=== PATIENT | male | born 1995 | race Hispanic/Latino ===

== ENCOUNTER 2018-07-15 10:17 | Emergency (ER) | payer BC ==
[2018-07-15 11:25] LABS: Absolute Monocytes 1.1 K/uL (0.1-1.3); Absolute Neutrophil 7.2 K/uL (1.8-8.0); Basophils % 1.7 % (0-1.3); Eosinophils % 4.5 % (0-4.4); Hematocrit 50.5 % (39.6-49.0); Lymphocytes % 24.7 % (15.3-44.8); MPV 7.8 fL (7.6-11.3); Monocytes % 9.4 % (3.3-12.3)
[2018-07-15] MEDS ORDERED: NA CHLORIDE 0.9% 1,000 ML ONE (11:29)
[2018-07-15 11:50] LABS: Albumin 4.5 g/dL (3.4-5.0); Bilirubin Direct 0.1 mg/dL (0-0.2); Bilirubin Total 0.6 mg/dL (0.2-1.0); Potassium 4.3 mmol/L (3.5-5.1); Protein, Total 9.5 g/dL (6.4-8.2)
--- NOTE | 2018-07-15 12:34 | EDPHYS ---
Physician Documentation [facility] Name: Rl Olmedo Age: 22 yrs Sex: Male : 1995 Arrival Date: 07/15/2018 Time: 10:21 Bed 13 Private MD: None, None ED Physician Anselmo Duke Historical: - Allergies: 07/15 10:29 No Known Allergies; hj - Home Meds: 10:29 None [Active]; hj - PMHx: 10:29 None; hj - PSHx: 10:29 None; hj - Immunization history:: Adult Immunizations up to date. - Social history:: Smoking status: Patient/guardian denies using tobacco, Patient uses alcohol. - Ebola Screening: : Patient negative for fever greater than or equal to 101.5 degrees Fahrenheit, and additional compatible Ebola Virus Disease symptoms Patient denies exposure to infectious person Patient denies travel to an Ebola-affected area in the 21 days before illness onset. Vital Signs: 10:30 BP 142 / 66; Pulse 66; Resp 18; Temp 98.1(O); Pulse Ox 99% on R/A; Weight 112.49 kg; hj Height 5 ft. 10 in. (177.80 cm); Pain 2/10; 12:50 BP 135 / 74; Pulse 67; Resp 16; Pulse Ox 98% ; la1 10:30 Body Mass Index 35.58 (112.49 kg, 177.80 cm) hj MDM: 12:34 Patient medically screened. [facility] 07/15 11:03 Order name: Basic Metabolic Panel; Complete Time: 11:54 [facility] 07/15 11:03 Order name: CBC with Diff; Complete Time: 11:54 [facility] 07/15 11:03 Order name: Creatinine for Radiology; Complete Time: 11:54 [facility] 07/15 11:03 Order name: Hepatic Function; Complete Time: 11:54 [facility] 07/15 11:03 Order name: Lipase; Complete Time: 11:54 [facility] 07/15 11:03 Order name: IV Saline Lock; Complete Time: 11:23 [facility] 07/15 11:03 Order name: Labs collected and sent; Complete Time: 11:23 kdr Administered Medications: 11:23 Drug: NS 0.9% 1000 ml Route: IV; Rate: 1 bolus; Site: right antecubital; la1 12:50 Follow up: IV Status: Completed infusion la1 Disposition: 07/15/18 12:34 Discharged to Home. Impression: Diarrhea, unspecified. - Condition is Stable. - Discharge Instructions: Abdominal Pain, Adult, [id number], Diarrhea, Adult, [id number]. - Prescriptions for Lomotil 2.5- 0.025 mg Oral Tablet - take 2 tablet by ORAL route once daily As needed; 20 tablet. - Medication Reconciliation Form, Thank You Letter form. - Follow up: Private Physician; When: 2 - 3 days; Reason: If symptoms return, Further diagnostic work-up, Recheck today's complaints, Continuance of care, Re-evaluation by your physician. - Problem is new. - Symptoms have improved. Addendum: 07/26/2018 08:01 Addendum: CC: Not feeling well and diarrhea HPI: The patient states that he has not k dr been feeling well for the last two weeks and that he recently began to have diarrhea and mild abdominal pain/cramps. He denies fever chills or vomiting, some nausea. No blood in his stools or foul smelling diarrhea. . Addendum: ROS: Const: No fever, chills or weight loss Eyes: no visual changes or c/o, Neck: no pain or injury, CV: no CP or palpitations, Resp: no SOB, cough or congestion, Abd: Mild crampy discomfort with occasional none bloody diarrhea, some nausea but no vomiting Back: no pain or injury, : no pain or bleeding, MS/Ext: no pain, injury, swelling, tingling, Skin: no lacerations, pain, injury, skin turgor good, Neuro: CN grossly intact and no other deficits, Psych: Appropriate for age, Allergy/Immunology: no rashes or other s/s, Endo: no evidence of polyuria, polydipsia, temperature control or other s/s . Addendum: Exam: Const: WDWN HM in NAD, Head/Face: no injury, pain or deformity, Eyes: PERRLA, ENT: no pain, injury or bleeding, Neck: no pain, injury or deformity, full ROM Chest/Axilla: No pain, injury or deformity, CV: no rubs, gallops, murmurs, regular rate, Resp: CTAB, regular rate, Abd/GI: soft, NT, BS present in all quads and normal, Back: no injury or deformity, full ROM, MS/Extremity: no injury or deformity, FROM, distal pulses good and equal, Skin: no rashes, ecchymosis skin turgor good, Neuro: CN grossly intact, no other neuro deficits, Psych: appropriate for age, no SI/HI, no depression . Addendum: MDM (Discharge) All VS and nursing notes reviewed. The patient was counseled on the results and need for follow-up. The patient was discharged in stable condition. They were happy with the care they received and the plan for d/c and follow-up. . Signatures: Dispatcher [employer] EDMS Anselmo Duke MD MD kdr Adarsh Jean RN RN la1 Jeff Yang RN RN Corrections: (The following items were deleted from the chart) 07/15 12:51 12:34 07/15/2018 12:34 Discharged to Home. Impression: Diarrhea, unspecified. Condition la1 is Stable. Forms are Medication Reconciliation Form, Thank You Letter, Antibiotic Education, Prescription Opioid Use. Follow up: Private Physician; When: 2 - 3 days; Reason: If symptoms return, Further diagnostic work-up, Recheck today's complaints, Continuance of care, Re-evaluation by your physician. Problem is new. Symptoms have improved. kdr
--- NOTE | 2018-07-15 12:34 | ER ---
Nurse's Notes [facility] Name: Rl Olmedo Age: 22 yrs Sex: Male : 1995 Arrival Date: 07/15/2018 Time: 10:21 Bed 13 Private MD: None, None Diagnosis: Diarrhea, unspecified Presentation: 07/15 10:26 Presenting complaint: Patient states: i was feeling sick, 2 weeks ago, i got better; hj starting Wednesday, i got sick and started having diarrhea; abd pain on my middle abd and L lower abd; reports vomiting; reports nausea after eating; denies fever and chills; reports cough; took nyquil and dayquil;. Transition of care: patient was not received from another setting of care. Onset of symptoms was July 15, 2018. Risk Assessment: Do you want to hurt yourself or someone else? Patient reports no desire to harm self or others. Initial Sepsis Screen: Does the patient meet any 2 criteria? No. Patient's initial sepsis screen is negative. Does the patient have a suspected source of infection? No. Patient's initial sepsis screen is negative. Care prior to arrival: None. 10:26 Method Of Arrival: Ambulatory 10:26 Acuity: LUIS 3 hj Triage Assessment: 10:29 General: Appears in no apparent distress. uncomfortable, Behavior is calm, cooperative, hj appropriate for age. Pain: Complains of pain in abdomen. GI: Reports lower abdominal pain, upper abdominal pain, diarrhea. Historical: - Allergies: 10:29 No Known Allergies; hj - Home Meds: 10:29 None [Active]; hj - PMHx: 10:29 None; hj - PSHx: 10:29 None; hj - Immunization history:: Adult Immunizations up to date. - Social history:: Smoking status: Patient/guardian denies using tobacco, Patient uses alcohol. - Ebola Screening: : Patient negative for fever greater than or equal to 101.5 degrees Fahrenheit, and additional compatible Ebola Virus Disease symptoms Patient denies exposure to infectious person Patient denies travel to an Ebola-affected area in the 21 days before illness onset. Screenin:29 Abuse screen: Denies threats or abuse. Denies injuries from another. Nutritional hj screening: No deficits noted. Tuberculosis screening: No symptoms or risk factors identified. Fall Risk None identified. Assessment: 10:30 GI: Bowel sounds hj 11:42 General: Appears in no apparent distress. Behavior is calm, cooperative. Pain: la1 Complains of pain in right lower quadrant and left lower quadrant. Neuro: Level of Consciousness is awake, alert, obeys commands, Oriented to person, place, time, situation. Cardiovascular: Capillary refill < 3 seconds Patient's skin is warm and dry. Respiratory: Airway is patent Trachea midline Respiratory effort is even, unlabored, Respiratory pattern is regular, symmetrical, Breath sounds are clear bilaterally. : No signs and/or symptoms were reported regarding the genitourinary system. 12:49 Reassessment: Patient appears in no apparent distress at this time. No changes from la1 previously documented assessment. Patient and/or family updated on plan of care and expected duration. Pain level reassessed. Patient is alert, oriented x 3, equal unlabored respirations, skin warm/dry/pink. Vital Signs: 10:30 BP 142 / 66; Pulse 66; Resp 18; Temp 98.1(O); Pulse Ox 99% on R/A; Weight 112.49 kg; hj Height 5 ft. 10 in. (177.80 cm); Pain 2/10; 12:50 BP 135 / 74; Pulse 67; Resp 16; Pulse Ox 98% ; la1 10:30 Body Mass Index 35.58 (112.49 kg, 177.80 cm) ED Course: 10:21 Patient arrived in ED. mr 10:22 None, None is Private Physician. mr 10:24 Anselmo Duke MD is Attending Physician. kdr 10:28 Triage completed. hj 10:30 Arm band placed on left wrist. hj 10:30 Patient has correct armband on for positive identification. Placed in gown. Bed in low hj position. Call light in reach. 10:32 Adarsh Jean, SHAYY is Primary Nurse. la1 11:23 No provider procedures requiring assistance completed. Inserted saline lock: 20 gauge la1 in right antecubital area, using aseptic technique. Blood collected. 12:49 IV discontinued, intact, bleeding controlled, No redness/swelling at site. Pressure la1 dressing applied. Administered Medications: 11:23 Drug: NS 0.9% 1000 ml Route: IV; Rate: 1 bolus; Site: right antecubital; la1 12:50 Follow up: IV Status: Completed infusion la1 Outcome: 12:34 Discharge ordered by . kdr 12:49 Discharged to home ambulatory. la1 12:49 Condition: stable 12:49 Discharge instructions given to patient, Instructed on discharge instructions, follow up and referral plans. medication usage, Demonstrated understanding of instructions, follow-up care, medications, Prescriptions given X 1. 12:51 Patient left the ED. la1 Signatures: Anselmo Duke MD MD kdr Radha Pollard Adarsh Goodwin RN RN la1 Jeff Yang RN RN Corrections: (The following items were deleted from the chart) 10:26 Presenting complaint: Patient states: i was feeling sick, 2 weeks ago, i got hj better; starting Wednesday, i got sick and started having diarrhea; abd pain on my middle abd and L lower abd; reports vomiting; denies fever and chills; reports cough; took nyquil and dayquil; hj 10:26 Acuity: LUIS 4 hj hj 10:32 10:30 112.49 kg; Height 5 ft. 10 in.; BMI: 35.5; Pain 2/10; hj hj 10:33 10:30 Pulse 66bpm; Resp 18bpm; Pulse Ox 99% RA; Temp 98.1F Oral; 112.49 kg; Height 5 hj ft. 10 in.; BMI: 35.5; Pain 2/10; hj
== END 2018-07-15 12:51 | disposition home or self-care (01) ==
LOC: ER 10:17
DX: R19.7 Diarrhea, unspecified (principal)
CPT/HCPCS: 36415; 80048; 80076; 83690; 85025; 96360; 99284; J7030

== ENCOUNTER 2020-05-31 11:35 | Emergency (ER) | payer BC, SELFPAY ==
[~2020-05-31 11:35] MED LIST: NA CHLORIDE 0.9% 250 ML ONE
[2020-05-31 12:17] LABS: Arterial Blood Carboxyhemoglob 0.9 % (0-1.5); Blood Gas Oxyhemoglobin 94.9 % (94-97); Blood O2 Saturation 96.4 % (92-98.5)
[2020-05-31 12:21] LABS: Hematocrit 42.3 % (39.6-49.0); RBC Red Blood Cell Count 4.97 M/uL (4.33-5.43)
[2020-05-31 12:30] LABS: BUN Blood Urea Nitrogen 10 mg/dL (7-18); Bicarbonate 25 mmol/L (21-32); Glucose Level 93 mg/dL (74-106); Potassium 3.8 mmol/L (3.5-5.1); Sodium Level 141 mmol/L (136-145)
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
[2020-06-01 00:50] VITALS: BP 148/98; TEMP 98.7; O2SAT 100
== END 2020-05-31 13:10 | disposition home or self-care (01) ==
LOC: ER 11:35
DX: Z71.1 Person with feared health complaint in whom no diagnosis is made (principal)
CPT/HCPCS: 36415; 80048; 82805; 83605; 85025; 93005; 99284; J7050